=== PATIENT | female | born 1965 | race Caucasian/White ===

== ENCOUNTER → 2016-04-30 | Outpatient (CLI) | payer BC ==
[2016-04-30 14:59] LABS: MEAN CORPUSCULAR HEMOGLOBIN 29.1 pg (27.0-33.0); MEAN CORPUSCULAR HGB CONC 32.5 g/dl (32.0-36.5); MEAN CORPUSCULAR VOLUME 89.4 fl (80.0-96.0); RED CELL DISTRIBUTION WIDTH 13.6 % (11.5-14.5); WHITE BLOOD COUNT 6.5 K/mm3 (4.0-10.0)
== END | disposition home or self-care (01) ==
LOC: M LAB 14:06
PROVIDERS: ATTEND Nurse Practitioner Adult Health
DX: Z00.00 Encounter for general adult medical examination without abnormal findings (principal)

== ENCOUNTER → 2016-07-17 | Outpatient (CLI) | payer BC ==
--- NOTE | 2016-07-17 13:38 | REPMRS ---
Patient History The patient states she had a clinical breast exam in 06/2016. No known family history of cancer. Benign ultrasound-guided core biopsy of the right breast, June 17, 2014. Digital Woman Screen Mammo: July 17, 2016 - Exam #: [id number] Bilateral CC and MLO view(s) were taken. Technologist: Aletha Parker, Technologist Prior study comparison: June 18, 2014, right breast digital mammo diagnostic unilateral, performed at [facility]. June 09, 2014, right breast digital mammo diagnostic unilateral, performed at [facility]. May 24, 2014, digital woman screen mammo performed at [facility]. March 28, 2010, bilateral digital mammo screening bilat performed at [facility]. FINDINGS: There are scattered fibroglandular densities. There has been no change in the appearance of the mammogram from the prior studies. There is a needle biopsy marker clip at the anterior edge of the previously identified mass in the inferomedial quadrant of the right breast unchanged. There is a mild amount of scattered fibroglandular density which is fairly symmetric. There is no interval development of dominant mass, architectural distortion, or clustered microcalcification suggestive of malignancy. ASSESSMENT: BI-RADS/ACR category 1 mammogram. Negative. Recommendation Routine screening mammogram in 1 year (for women over age 40). This mammogram was interpreted with the aid of an FDA-approved computer-aided dectection system. Electronically Signed By: Jovan Waterman MD 07/17/16 [id number]
== END ==
LOC: M WHC 08:50
PROVIDERS: ATTEND Nurse Practitioner Family
DX: Z12.31 Encounter for screening mammogram for malignant neoplasm of breast (principal)

== ENCOUNTER → 2016-08-10 | Outpatient (REF) | payer BC | LOC: M SFHCWAGY 12:04 | PROVIDERS: ATTEND Nurse Practitioner Family | DX: Z01.419 Encounter for gynecological examination (general) (routine) without abnormal findings (principal); Z11.51 Encounter for screening for human papillomavirus (HPV); R87.610 Atypical squamous cells of undetermined significance on cytologic smear of cervix (ASC-US) ==

== ENCOUNTER → 2016-12-25 | Outpatient (REF) | payer BC ==
[2016-12-25 19:21] LABS: PROGESTERONE 5.4 NG/ML
[2016-12-25 19:22] LABS: ESTRADIOL 52.5 PG/ML; FOLLICLE STIMULATING HORMONE 4.9 mIU/mL; LUTEINIZING HORMONE 4.5 mIU/mL
[2016-12-29 00:07] LABS: ESTRONE SERUM 82 pg/mL (.)
== END ==
LOC: M LAB REF 17:33
PROVIDERS: ATTEND Obstetrics & Gynecology
DX: N95.9 Unspecified menopausal and perimenopausal disorder (principal)

== ENCOUNTER → 2017-06-28 | Outpatient (REF) | payer BC ==
[2017-06-28 13:49] LABS: PROGESTERONE 0.2 NG/ML
[2017-06-28 13:49] LABS: LUTEINIZING HORMONE 10.3 mIU/mL
[2017-06-28 13:50] LABS: ESTRADIOL 62.6 PG/ML; FOLLICLE STIMULATING HORMONE 11.4 mIU/mL
[2017-06-29 14:14] LABS: TESTOSTERONE FREE (DIRECT) 4.6 pg/mL (0.0-4.2)
== END ==
LOC: M LAB REF 12:37
DX: N95.1 Menopausal and female climacteric states (principal)
CPT/HCPCS: 83001

== ENCOUNTER → 2018-07-29 | Outpatient (CLI) | payer BC ==
[2018-07-29 10:17] LABS: ALBUMIN 3.9 GM/DL (3.2-5.2); ALT/SGPT 18 U/L (12-78); BILIRUBIN,TOTAL 0.3 MG/DL (0.2-1.0); BLOOD UREA NITROGEN 12 MG/DL (7-18); CALCIUM LEVEL 8.6 MG/DL (8.5-10.1); CARBON DIOXIDE LEVEL 26 MEQ/L (21-32); CHLORIDE LEVEL 110 MEQ/L (98-107); CHOLESTEROL LEVEL 221 MG/DL (<200); CHOLESTEROL RISK RATIO 4.333 (<5); CREATININE FOR GFR 0.84 MG/DL (0.55-1.30); GLOMERULAR FILTRATION RATE > 60.0 (>51); GLUCOSE, FASTING 93 MG/DL (70-100); HDL CHOLESTEROL 51 MG/DL (>40); LDL CHOLESTEROL 137 MG/DL (<100); NON-HDL-C 170 MG/DL; POTASSIUM SERUM 4.6 MEQ/L (3.5-5.1); SODIUM LEVEL 141 MEQ/L (136-145); THYROID STIMULATING HORMONE 0.731 uIU/ML (0.358-3.740); TOTAL 25(OH) VITAMIN D 32.8 NG/ML (30.0-100.0); TOTAL PROTEIN 7.1 GM/DL (6.4-8.2); TRIGLYCERIDES LEVEL 165 MG/DL (<150)
== END ==
LOC: M LAB 08:27
PROVIDERS: ATTEND Nurse Practitioner Adult Health
DX: Z00.00 Encounter for general adult medical examination without abnormal findings (principal); E55.9 Vitamin D deficiency, unspecified; Z13.220 Encounter for screening for lipoid disorders

== ENCOUNTER → 2018-10-14 | Outpatient (CLI) | payer BC ==
--- NOTE | 2018-10-14 10:27 | REP ---
Clinical: Coughing and wheezing . Comparison: None . Technique: PA and lateral. Findings: The mediastinum and cardiac silhouette are normal. The lung murdock are clear and without acute consolidation, effusion, or pneumothorax. The skeletal structures are intact and normal. Impression: 1. No acute cardiopulmonary process. Electronically Signed by Ej Nayak MD 10/14/2018 10:18 A
== END ==
LOC: M SMT 09:53
PROVIDERS: ATTEND Nurse Practitioner Adult Health
DX: R06.2 Wheezing (principal)

== ENCOUNTER → 2018-10-14 | Outpatient (REF) | payer BC ==
[2018-10-14 12:26] LABS: HEMATOCRIT 41.5 % (36.0-47.0); HEMOGLOBIN 13.1 g/dl (12.0-15.5); MEAN CORPUSCULAR HEMOGLOBIN 29.1 pg (27.0-33.0); MEAN CORPUSCULAR HGB CONC 31.6 g/dl (32.0-36.5); MEAN CORPUSCULAR VOLUME 92.2 fl (80.0-96.0); PLATELET COUNT, AUTOMATED 375 10^3/uL (150-450); WHITE BLOOD COUNT 5.7 10^3/uL (4.0-10.0)
[2018-10-14 12:37] LABS: ALBUMIN 3.7 GM/DL (3.2-5.2); ALT/SGPT 26 U/L (12-78); BILIRUBIN,TOTAL 0.3 MG/DL (0.2-1.0); BLOOD UREA NITROGEN 12 MG/DL (7-18); CALCIUM LEVEL 8.4 MG/DL (8.5-10.1); CARBON DIOXIDE LEVEL 29 MEQ/L (21-32); CHLORIDE LEVEL 108 MEQ/L (98-107); CREATININE FOR GFR 0.86 MG/DL (0.55-1.30); FERRITIN 32 NG/ML (8-252); GLOMERULAR FILTRATION RATE > 60.0 (>51); GLUCOSE, FASTING 95 MG/DL (70-100); IRON (FE) 70 UG/DL (50-170); PERCENT SATURATION 22.6 % (13.2-45.0); POTASSIUM SERUM 4.5 MEQ/L (3.5-5.1); SODIUM LEVEL 141 MEQ/L (136-145); THYROID STIMULATING HORMONE 0.793 uIU/ML (0.358-3.740); TOTAL IRON BINDING CAPACITY 310 UG/DL (250-450); TOTAL PROTEIN 7.4 GM/DL (6.4-8.2)
== END ==
LOC: M SFHCPLAZ 09:19
PROVIDERS: ATTEND Nurse Practitioner Adult Health
DX: R53.83 Other fatigue (principal)

== ENCOUNTER 2019-09-10 09:23 | Outpatient (RCR) | payer BC | END 2019-09-13 | LOC: M PT 09:23 | PROVIDERS: ATTEND Physician Assistant | DX: Z51.89 Encounter for other specified aftercare (principal); M25.511 Pain in right shoulder ==

== ENCOUNTER → 2019-10-13 | Outpatient (RCR) | payer BC | LOC: M PT 09-15 09:38 | PROVIDERS: ATTEND Physician Assistant | DX: Z51.89 Encounter for other specified aftercare (principal); M25.511 Pain in right shoulder; M79.601 Pain in right arm ==

== ENCOUNTER → 2020-01-20 | Outpatient (CLI) | payer BC ==
[2020-01-20 08:16] LABS: C REACTIVE PROTEIN QUANTITATIV 2.35 MG/DL (0.00-0.30); RHEUMATOID FACTOR QUANT < 10.0 IU/ML (<15.0)
== END ==
LOC: M LAB 06:19
PROVIDERS: ATTEND Physician Assistant
DX: M17.10 Unilateral primary osteoarthritis, unspecified knee (principal)

== ENCOUNTER → 2020-02-15 | Outpatient (REF) | payer BC ==
[2020-02-18 02:08] LABS: CYCLIC CITRULLINATED PEPTIDE 4 units (0-19); IgG P18 AB Absent (.); IgG P23 AB Present (.); IgG P28 AB Absent (.); IgG P30 AB Absent (.); IgG P39 AB Absent (.); IgG P41 AB Present (.); IgG P45 AB Absent (.); IgG P66 AB Absent (.); IgG P93 AB Present (.); IgM P23 AB Present (.); IgM P39 AB Absent (.); IgM P41 AB Absent (.); LYME IgG WB INTERPRETATION Negative (.); LYME IgM WB INTERPRETATION Negative (.)
== END ==
LOC: M SFHCPLAZ 15:27
PROVIDERS: ATTEND Nurse Practitioner Adult Health
DX: M25.562 Pain in left knee (principal)

== ENCOUNTER → 2020-02-15 | Outpatient (CLI) | payer BC ==
--- NOTE | 2020-02-16 07:49 | REPPI ---
INDICATION: M54.5 LOW BACK PAIN. COMPARISON: Comparison study is from June 16, 2015.. TECHNIQUE: Five views. FINDINGS: There are surgical clips in the right abdomen. Moderate stool. Psoas margins are flank stripes are intact. Lumbar vertebral body heights are preserved. Alignment is normal. There is degenerative disc disease with disc space narrowing sclerosis and anterior osteophyte formation at L5-S1. A vacuum phenomenon is seen. The osteophyte formation is slightly more prominent. There is also degenerative disc narrowing at L4-5 and to some degree at L3-4. This is unchanged. Mild facet hypertrophy is present bilaterally at L5-S1. Sacrum and SI joints are intact. None pedicles and posterior elements are intact. No bony destructive lesion is seen. IMPRESSION: Degenerative disc and facet changes at L5-S1 slightly more prominent than on the 2016 prior study. Mild degenerative narrowing of the 4 5 and 3 4 discs. This is unchanged. <Electronically signed by Jovan Waterman > 02/16/20 0710
== END ==
LOC: M PLAIMG 15:27
PROVIDERS: ATTEND Nurse Practitioner Adult Health
DX: M54.5 Low back pain (principal)

== ENCOUNTER → 2020-05-03 | Outpatient (CLI) | payer BC ==
[2020-05-03 07:27] LABS: ALT/SGPT 33 U/L (12-78); BILIRUBIN,TOTAL 0.3 MG/DL (0.2-1.0); BLOOD UREA NITROGEN 11 MG/DL (7-18); CALCIUM LEVEL 9.8 MG/DL (8.5-10.1); CARBON DIOXIDE LEVEL 27 MEQ/L (21-32); CHLORIDE LEVEL 109 MEQ/L (98-107); CREATININE FOR GFR 0.99 MG/DL (0.55-1.30); GLOMERULAR FILTRATION RATE > 60.0 (>51); GLUCOSE, FASTING 112 MG/DL (70-100); POTASSIUM SERUM 4.3 MEQ/L (3.5-5.1); SODIUM LEVEL 144 MEQ/L (136-145); TOTAL PROTEIN 7.5 GM/DL (6.4-8.2)
== END ==
LOC: M LAB 06:14
PROVIDERS: ATTEND Nurse Practitioner Adult Health
DX: R17 Unspecified jaundice (principal)

== ENCOUNTER → 2020-09-07 | Outpatient (REF) | payer BC ==
[2020-09-07 13:14] LABS: SOURCE, BODY FLUID RT KNEE
[2020-09-07 13:21] LABS: CRYSTALS, BODY FLUID NONE SEEN (NONE SEEN); SOURCE, BODY FLUID CRYSTALS RT KNEE
[2020-09-07 13:22] LABS: SYNOVIAL FLUID COLOR YELLOW (COLORLESS)
[2020-09-07 13:41] LABS: SOURCE, BODY FLUID GLUCOSE RT KNEE
[2020-09-08 08:21] LABS: BODY FLUID RHEUMATOID SCREEN NEGATIVE (NEGATIVE)
[2020-09-08 08:22] LABS: MUCIN CLOT TEST 4+ (4+)
== END ==
LOC: M LAB REF 12:40
PROVIDERS: ATTEND Physician Assistant
DX: S80.01XD Contusion of right knee, subsequent encounter (principal); W18.30XD Fall on same level, unspecified, subsequent encounter; Y92.009 Unspecified place in unspecified non-institutional (private) residence as the place of occurrence of the external cause

== ENCOUNTER → 2020-10-14 | Outpatient (CLI) | payer BC ==
[2020-10-14 11:30] LABS: C REACTIVE PROTEIN QUANTITATIV 0.85 MG/DL (0.00-0.30); URIC ACID 3.7 MG/DL (2.6-6.0)
[2020-10-15 17:18] LABS: Lyme Disease IgG/IgM Antibodie <0.91 ISR (0.00-0.90); Lyme Disease IgM Ab Quantitati <0.80 index (0.00-0.79)
== END ==
LOC: M LAB 09:54
PROVIDERS: ATTEND Orthopaedic Surgery
DX: M25.561 Pain in right knee (principal); M25.562 Pain in left knee

== ENCOUNTER → 2020-10-28 | Outpatient (CLI) | payer BC ==
[2020-10-28 17:04] LABS: C REACTIVE PROTEIN QUANTITATIV 4.72 MG/DL (0.00-0.30); RHEUMATOID FACTOR QUANT < 10.0 IU/ML (<15.0); URIC ACID 3.1 MG/DL (2.6-6.0)
== END ==
LOC: M LAB 14:39
PROVIDERS: ATTEND Orthopaedic Surgery
DX: M25.561 Pain in right knee (principal); M25.562 Pain in left knee

== ENCOUNTER 2020-12-12 16:00 | Outpatient (RCR) | payer BC | END 2020-12-13 | LOC: M PT 16:00 | PROVIDERS: ATTEND Orthopaedic Surgery | DX: M25.561 Pain in right knee (principal) ==

== ENCOUNTER → 2020-12-13 | Outpatient (CLI) | payer BC ==
--- NOTE | 2020-12-13 13:31 | REP ---
INDICATION: RT LEG PAIN SWELLING ? DVT. COMPARISON: None. TECHNIQUE: Right {lower extremity duplex venous scanning is performed from the groin to the ankle level. FINDINGS: The deep veins are anechoic and fully compressible from the groin to the popliteal fossa in the right lower extremity. Color flow imaging is homogeneous. Spectral Doppler interrogation demonstrates intact respiratory variation in flow and normal manual augmentation of flow. There is no evidence of deep vein thrombosis above the knee. There is no evidence of DVT in the visualized calf veins. Doppler interrogation of the contralateral common femoral vein shows normal symmetric respiratory phasicity. IMPRESSION: No evidence of DVT in the right lower extremity femoropopliteal veins. No DVT in the visible portions of the calf veins. Small quantity of tendon sheath fluid is visible at the medial aspect of the ankle on the right. <Electronically signed by Jovan Waterman > 12/13/20 [id number]
== END ==
LOC: M RAD 12:36
PROVIDERS: ATTEND Physician Assistant
DX: M79.89 Other specified soft tissue disorders (principal); M25.571 Pain in right ankle and joints of right foot

== ENCOUNTER → 2020-12-30 | Outpatient (REF) | payer BC ==
[2020-12-30 10:36] LABS: BLOOD UREA NITROGEN 14 MG/DL (7-18); CARBON DIOXIDE LEVEL 27 MEQ/L (21-32); CHLORIDE LEVEL 106 MEQ/L (98-107); CREATININE FOR GFR 0.77 MG/DL (0.55-1.30); GLOMERULAR FILTRATION RATE > 60.0 (>51); GLUCOSE, FASTING 98 MG/DL (70-100); POTASSIUM SERUM 4.3 MEQ/L (3.5-5.1); SODIUM LEVEL 142 MEQ/L (136-145)
[2020-12-30 10:37] LABS: ALBUMIN 3.7 GM/DL (3.2-5.2); ALT/SGPT 19 U/L (12-78); BILIRUBIN,TOTAL 0.4 MG/DL (0.2-1.0); CALCIUM LEVEL 9.2 MG/DL (8.5-10.1); CHOLESTEROL LEVEL 267 MG/DL (<200); CHOLESTEROL RISK RATIO 4.525 (<5); HDL CHOLESTEROL 59 MG/DL (>40); LDL CHOLESTEROL 179 MG/DL (<100); NON-HDL-C 208 MG/DL; THYROID STIMULATING HORMONE 0.695 uIU/ML (0.358-3.740); TOTAL PROTEIN 7.2 GM/DL (6.4-8.2); TRIGLYCERIDES LEVEL 147 MG/DL (<150)
[2020-12-30 12:09] LABS: HEMOGLOBIN A1c 5.7 %
== END ==
LOC: M LAB REF 09:13
PROVIDERS: ATTEND Nurse Practitioner Adult Health
DX: Z13.1 Encounter for screening for diabetes mellitus (principal); Z00.00 Encounter for general adult medical examination without abnormal findings; Z13.220 Encounter for screening for lipoid disorders; Z13.29 Encounter for screening for other suspected endocrine disorder

== ENCOUNTER → 2021-03-02 | Outpatient (CLI) | payer BC ==
[2021-03-02 16:19] LABS: BASO # 0.1 10^3/uL (0.0-0.2); BASO % 0.9 % (0.0-1.0); EOS # 0.2 10^3/uL (0.0-0.5); EOS % 2.5 % (0.0-3.0); LYMPH # 2.2 10^3/uL (1.5-5.0); LYMPH % 34.5 % (24.0-44.0); MEAN CORPUSCULAR HEMOGLOBIN 28.7 pg (27.0-33.0); MEAN CORPUSCULAR HGB CONC 31.6 g/dl (32.0-36.5); MEAN CORPUSCULAR VOLUME 90.9 fl (80.0-96.0); MONO # 0.5 10^3/uL (0.0-0.8); NEUTROPHILS # 3.5 10^3/uL (1.5-8.5); NEUTROPHILS % 53.9 % (36.0-66.0); PLATELET COUNT, AUTOMATED 387 10^3/uL (150-450); RED BLOOD COUNT 4.18 10^6/uL (4.00-5.40); WHITE BLOOD COUNT 6.5 10^3/uL (4.0-10.0)
[2021-03-02 16:44] LABS: ALBUMIN 3.9 GM/DL (3.2-5.2); ALT/SGPT 23 U/L (12-78); BILIRUBIN,TOTAL 0.2 MG/DL (0.2-1.0); BLOOD UREA NITROGEN 19 MG/DL (7-18); CALCIUM LEVEL 9.5 MG/DL (8.5-10.1); CARBON DIOXIDE LEVEL 29 MEQ/L (21-32); CHLORIDE LEVEL 104 MEQ/L (98-107); CREATININE FOR GFR 0.84 MG/DL (0.55-1.30); GLOMERULAR FILTRATION RATE > 60.0 (>51); GLUCOSE, FASTING 103 MG/DL (70-100); POTASSIUM SERUM 3.9 MEQ/L (3.5-5.1); SODIUM LEVEL 140 MEQ/L (136-145); TOTAL PROTEIN 7.7 GM/DL (6.4-8.2)
[2021-03-02 17:37] LABS: ERYTHROCYTE SEDIMENTATION RATE 34 mm/hr (0-30)
== END ==
LOC: M LAB 15:34
PROVIDERS: ATTEND Physician Assistant
DX: M25.461 Effusion, right knee (principal); S80.01XD Contusion of right knee, subsequent encounter

== ENCOUNTER → 2021-05-26 | Outpatient (CLI) | payer BC ==
[2021-05-26 16:37] LABS: BASO # 0.1 10^3/uL (0.0-0.2); BASO % 0.8 % (0.0-1.0); EOS # 0.2 10^3/uL (0.0-0.5); EOS % 3.3 % (0.0-3.0); HEMATOCRIT 36.7 % (36.0-47.0); HEMOGLOBIN 11.6 g/dl (12.0-15.5); LYMPH # 2.1 10^3/uL (1.5-5.0); LYMPH % 34.7 % (24.0-44.0); MEAN CORPUSCULAR HEMOGLOBIN 28.9 pg (27.0-33.0); MEAN CORPUSCULAR HGB CONC 31.6 g/dl (32.0-36.5); MEAN CORPUSCULAR VOLUME 91.3 fl (80.0-96.0); MONO # 0.5 10^3/uL (0.0-0.8); MONO % 8.3 % (2.0-8.0); NEUTROPHILS # 3.2 10^3/uL (1.5-8.5); NEUTROPHILS % 52.7 % (36.0-66.0); PLATELET COUNT, AUTOMATED 377 10^3/uL (150-450); RED BLOOD COUNT 4.02 10^6/uL (4.00-5.40)
[2021-05-26 16:43] LABS: APPEARANCE, URINE CLEAR (CLEAR); BACTERIA, URINE AUTO NEGATIVE (NEGATIVE); BILIRUBIN, URINE AUTO NEGATIVE (NEGATIVE); BLOOD, URINE BLOOD 1+ (NEGATIVE); COLOR, URINE YELLOW (YELLOW); GLUCOSE, URINE (UA) AUTO NEGATIVE (NEGATIVE); KETONE, URINE AUTO TRACE mg/dL (NEGATIVE); LEUKOCYTE ESTERASE, URINE AUTO TRACE (NEGATIVE); NITRITE, URINE AUTO NEGATIVE (NEGATIVE); PROTEIN, URINE AUTO NEGATIVE (NEGATIVE); RBC, URINE AUTO 8 /HPF (0-3); SQUAMOUS EPITHELIAL CELL UR AU 5 /HPF (0-6); UROBILINOGEN, URINE AUTO 0.2 mg/dL (0.0-2.0); WBC, URINE AUTO 4 /HPF (0-3)
[2021-05-26 16:59] LABS: TOTAL PROTEIN,RANDOM URINE 18.5 MG/DL (0.0-12.0)
[2021-05-26 17:08] LABS: ALBUMIN 3.6 GM/DL (3.2-5.2); ALT/SGPT 18 U/L (12-78); BILIRUBIN,DIRECT < 0.1 MG/DL (0.0-0.2); BILIRUBIN,TOTAL < 0.1 MG/DL (0.2-1.0); BLOOD UREA NITROGEN 19 MG/DL (7-18); C REACTIVE PROTEIN QUANTITATIV 0.97 MG/DL (0.00-0.30); CARBON DIOXIDE LEVEL 26 MEQ/L (21-32); CHLORIDE LEVEL 109 MEQ/L (98-107); CREATININE FOR GFR 0.82 MG/DL (0.55-1.30); GLOMERULAR FILTRATION RATE > 60.0 (>51); GLUCOSE, FASTING 90 MG/DL (70-100); IRON (FE) 37 UG/DL (50-170); MAGNESIUM LEVEL 2.2 MG/DL (1.8-2.4); PHOSPHORUS LEVEL 4.7 MG/DL (2.5-4.9); POTASSIUM SERUM 3.8 MEQ/L (3.5-5.1); SODIUM LEVEL 143 MEQ/L (136-145); TOTAL PROTEIN 6.8 GM/DL (6.4-8.2)
[2021-05-26 17:24] LABS: ERYTHROCYTE SEDIMENTATION RATE 28 mm/hr (0-30)
[2021-05-26 17:38] LABS: COMPLEMENT C3 103 MG/DL (90-180); COMPLEMENT C4 22 MG/DL (10-40)
[2021-05-26 18:10] LABS: TOTAL 25(OH) VITAMIN D 45.3 NG/ML (30.0-100.0); VITAMIN B12 LEVEL 296 PG/ML (247-911)
[2021-05-29 09:18] LABS: ALBUMIN 4.07 GM/DL (3.29-5.55); ALBUMIN % 59.8 % (55.8-66.1); ALPHA-1-GLOBULINS 0.27 GM/DL (0.17-0.41); ALPHA-2-GLOBULINS 0.67 GM/DL (0.42-0.99); ALPHA-2-GLOBULINS % 9.9 % (7.1-11.8); BETA-1-GLOBULINS 0.41 GM/DL (0.28-0.60); BETA-1-GLOBULINS % 6.1 % (4.7-7.2); BETA-2-GLOBULINS 0.37 GM/DL (0.19-0.55); BETA-2-GLOBULINS % 5.5 % (3.2-6.5); GAMMA GLOBULIN % 14.7 % (11.1-18.8)
== END ==
LOC: M RAD 15:40
PROVIDERS: ATTEND Internal Medicine
DX: M06.4 Inflammatory polyarthropathy (principal); J34.0 Abscess, furuncle and carbuncle of nose; M79.10 Myalgia, unspecified site

== ENCOUNTER → 2021-06-30 | Outpatient (REF) | payer BC ==
[2021-06-30 17:31] LABS: APPEARANCE, URINE HAZY (CLEAR); BACTERIA, URINE AUTO NEGATIVE (NEGATIVE); BILIRUBIN, URINE AUTO NEGATIVE (NEGATIVE); BLOOD, URINE BLOOD NEGATIVE (NEGATIVE); COLOR, URINE YELLOW (YELLOW); GLUCOSE, URINE (UA) AUTO NEGATIVE (NEGATIVE); KETONE, URINE AUTO NEGATIVE (NEGATIVE); LEUKOCYTE ESTERASE, URINE AUTO 3+ (NEGATIVE); MUCUS, URINE SMALL (NEGATIVE); NITRITE, URINE AUTO NEGATIVE (NEGATIVE); PROTEIN, URINE AUTO NEGATIVE (NEGATIVE); RBC, URINE AUTO 0 /HPF (0-3); SPECIFIC GRAVITY URINE AUTO 1.016 (1.002-1.035); SQUAMOUS EPITHELIAL CELL UR AU 8 /HPF (0-6); UROBILINOGEN, URINE AUTO 0.2 mg/dL (0.0-2.0); WBC, URINE AUTO 5 /HPF (0-3)
== END ==
LOC: M SFHCRHEU 12:44
PROVIDERS: ATTEND Internal Medicine
DX: R31.9 Hematuria, unspecified (principal)

== ENCOUNTER 2021-07-05 12:12 | Outpatient (RCR) | payer BC | END 2021-07-13 | LOC: M OT 12:12 | PROVIDERS: ATTEND Internal Medicine | DX: M18.9 Osteoarthritis of first carpometacarpal joint, unspecified (principal) ==

== ENCOUNTER → 2021-08-29 | Outpatient (REF) | payer BC ==
[2021-08-29 14:13] LABS: ALBUMIN 4.1 GM/DL (3.2-5.2); ALT/SGPT 28 U/L (12-78); BILIRUBIN,DIRECT < 0.1 MG/DL (0.0-0.2); BILIRUBIN,TOTAL 0.5 MG/DL (0.2-1.0); BLOOD UREA NITROGEN 17 MG/DL (7-18); C REACTIVE PROTEIN QUANTITATIV 1.16 MG/DL (0.00-0.30); CALCIUM LEVEL 9.8 MG/DL (8.5-10.1); CARBON DIOXIDE LEVEL 31 MEQ/L (21-32); CHLORIDE LEVEL 105 MEQ/L (98-107); CREATININE FOR GFR 0.83 MG/DL (0.55-1.30); GLOMERULAR FILTRATION RATE > 60.0 (>51); GLUCOSE, FASTING 83 MG/DL (70-100); POTASSIUM SERUM 4.6 MEQ/L (3.5-5.1); SODIUM LEVEL 139 MEQ/L (136-145); TOTAL PROTEIN 7.7 GM/DL (6.4-8.2)
== END ==
LOC: M SFHCRHEU 11:24
PROVIDERS: ATTEND Internal Medicine
DX: Z79.1 Long term (current) use of non-steroidal anti-inflammatories (NSAID) (principal); M06.4 Inflammatory polyarthropathy

== ENCOUNTER → 2021-12-20 | Outpatient (CLI) | payer BC | LOC: M SOG 16:01 | PROVIDERS: ATTEND Orthopaedic Surgery | DX: M25.541 Pain in joints of right hand (principal); M25.542 Pain in joints of left hand; M79.644 Pain in right finger(s); M19.031 Primary osteoarthritis, right wrist; M19.032 Primary osteoarthritis, left wrist ==